=== PATIENT | male | born 1955 | race Caucasian/White ===

== ENCOUNTER → 2018-09-25 | Emergency (ER) | payer MEDICAID ==
[~2018-09-25] VITALS: Ht 170.2 cm; Wt 100.0 kg
[~2018-09-25] MED LIST: IBUP-1542 PO; KETOROLAC 30 MG INJ IM STA
[2018-09-25 14:05] VITALS: BP 141/77; PULSE 74; RESP 20; Ht 170.2 cm; Wt 100.0 kg
--- NOTE | 2018-09-26 00:25 | ERD ---
ER Documentation Chief Complaint Chief Complaint c/o right ankle swelling with pain x1 day. Denies injury HPI 63-year-old man complains of pain and mild swelling to the right lateral foot x1 day. He denies any direct trauma or inversion injury to the foot, no redness, no fevers or chills, no ankle pain or swelling. Pain precipitated by ambulating. ROS All systems reviewed and are negative except as per history of present illness. Medications Home Meds Active Scripts Ibuprofen* (Motrin*) 600 Mg Tab, 600 MG PO Q8 PRN for PAIN AND/OR INFLAMMATION, #30 TAB Prov:CARO ESTEBAN MD 09/25/18 Allergies Allergies: Coded Allergies: No Known Allergy (Unverified , 09/25/18) PMhx/Soc Obesity Medical and Surgical Hx: pt denies Medical Hx, pt denies Surgical Hx Hx Alcohol Use: No Hx Substance Use: No Hx Tobacco Use: No Smoking Status: Never smoker FmHx Family History: No diabetes Physical Exam Vitals Vital Signs Date Temp Pulse Resp B/P (MAP) Pulse Ox O2 O2 Flow FiO2 Time Delivery Rate 09/25/18 97.4 74 20 141/77 98 14:05 (98) Physical Exam Const: No acute distress, afebrile Resp: Clear to auscultation bilaterally Cardio: Regular rate and rhythm, no murmurs Abd: Soft, non tender, non distended. Normal bowel sounds Skin: No petechiae or rashes. Patient has no ulcers, erythema, induration, or lacerations. Back: No midline or flank tenderness Ext: No cyanosis, 1+ pitting edema lower extremities bilateral Neur: Awake and alert x3, no focal deficits or facial asymmetry, pupils equal round reactive to light Results 24 hrs Current Medications Medications Dose Sig/Yaquelin Start Time Status Last (Trade) Ordered Route PRN Stop Time Admin Dose Reason Admin Ketorolac 30 mg ONCE STAT 09/25/18 DC 09/25/18 Tromethamine IM 16:19 16:25 (Toradol) 09/25/18 16:22 Procedures/MDM Patient has mild tissue edema to the right lateral foot near the fifth metatarsal although no ecchymosis contusions or hematomas. No bony deformity, no skin erythema or induration. I administered Toradol 30 mg IM x1. X-ray right foot 3V Interpreted by me: Bones: No fracture Joints: No dislocation Foreign body: None Patient has no fracture, dislocation, signs of gout, cellulitis, or foreign bodies. He is able to ambulate before comfort and supportive measures I splinted the right foot with all cotton elastic bandage wrapped circumferential ly Patient will be discharged to follow-up with PMD. Departure Diagnosis: Primary Impression: Right foot sprain Encounter type: initial encounter Qualified Codes: S93.601A - Unspecified sprain of right foot, initial encounter Additional Impression: Contusion of soft tissue Condition: Good Patient Instructions: Contusion, Foot, Sprain Foot CARO ESTEBAN MD Sep 26, 2018 00:25
== END | disposition home or self-care (01) ==
LOC: FTE 13:34
DX: S93.601A Unspecified sprain of right foot, initial encounter (principal); X58.XXXA Exposure to other specified factors, initial encounter; Y92.9 Unspecified place or not applicable
CPT/HCPCS: 73630; 96372; J1885; Z7502

== ENCOUNTER 2019-01-02 10:52 | Emergency (ER) | payer SELFPAY ==
[~2019-01-02] VITALS: Ht 162.6 cm; Wt 80.0 kg
[~2019-01-02 10:52] MED LIST changes: +IBUP-1561 PO; -KETOROLAC 30 MG INJ IM STA
[2019-01-02 10:56] VITALS: BP 165/88; PULSE 72; RESP 18; Ht 162.6 cm; Wt 80.0 kg
[2019-01-02] MEDS ORDERED: ASPIRIN (EC) 81 MG TAB PO ONE (12:00)
--- NOTE | 2019-01-02 12:09 | ERD ---
ER Documentation Chief Complaint Chief Complaint left shoulder pain x 10 days HPI Patient is a 63 years old male with past medical history of diabetes and hyperlipidemia presenting to the clinic for left shoulder pain X 10 days. Sara rivers reports pain starts on the left shoulder region that radiates to anterior mid chest to left-sided chest stent radiates to left mid back. Patient is also complaining of left arm weakness and paresthesia. Patient denies any trauma or injury. Patient denies fever, chills, night sweats, rigors, shortness of breath, difficulty breathing. ROS All systems reviewed and are negative except as per history of present illness. Medications Home Meds Active Scripts Ibuprofen* (Motrin*) 400 Mg Tab, 400 MG PO Q8, #30 TAB Prov:ABDULLAHI DAWKINS PA-C 01/02/19 Ibuprofen* (Motrin*) 600 Mg Tab, 600 MG PO Q8 PRN for PAIN AND/OR INFLAMMATION, #30 TAB Prov:CARO ESTEBAN MD 09/25/18 Allergies Allergies: Coded Allergies: No Known Allergy (Unverified , 09/25/18) PMhx/Soc History of Surgery: No Anesthesia Reaction: No Hx Neurological Disorder: No Hx Respiratory Disorders: No Hx Cardiac Disorders: No Hx Psychiatric Problems: No Hx Miscellaneous Medical Probl: No Hx Alcohol Use: No Hx Substance Use: No Hx Tobacco Use: No FmHx Family History: No diabetes, No coronary disease, No other Physical Exam Vitals Vital Signs Date Temp Pulse Resp B/P (MAP) Pulse Ox O2 O2 Flow FiO2 Time Delivery Rate 01/02/19 98.1 72 18 165/88 99 10:56 (113) Physical Exam Const: No acute distress. Patient sitting comfortably on exam chair reading his newspaper. Head: Atraumatic Eyes: Normal Conjunctiva. PERRLA. No nystagmus. Neck: Full range of motion. No meningismus. No tenderness. Resp: Clear to auscultation bilaterally Cardio: Regular rate and rhythm, no murmurs Abd: Soft, non tender, non distended. Normal bowel sounds Ext: No cyanosis, or edema. 5/5 right upper extremity, 4/5 left upper extremity. Left shoulder tenderness. Difficulty with pronation and left arm elevation. Neur: Awake and alert. CNII-XII intact. Psych: Normal Mood and Affect Result Diagram: 01/02/19 1158 01/02/19 1158 Results 24 hrs Laboratory Tests Test 01/02/19 11:58 White Blood Count 6.1 10^3/ul Red Blood Count 4.69 10^6/ul Hemoglobin 13.9 g/dl Hematocrit 41.2 % Mean Corpuscular Volume 87.8 fl Mean Corpuscular Hemoglobin 29.6 pg Mean Corpuscular Hemoglobin Concent 33.7 g/dl Red Cell Distribution Width 13.2 % Platelet Count 72 10^3/UL Mean Platelet Volume 12.0 fl Immature Granulocytes % 0.300 % Neutrophils % 59.4 % Lymphocytes % 28.4 % Monocytes % 9.3 % Eosinophils % 2.1 % Basophils % 0.5 % Nucleated Red Blood Cells % 0.0 /100WBC Immature Granulocytes # 0.020 10^3/ul Neutrophils # 3.6 10^3/ul Lymphocytes # 1.7 10^3/ul Monocytes # 0.6 10^3/ul Eosinophils # 0.1 10^3/ul Basophils # 0.0 10^3/ul Nucleated Red Blood Cells # 0.0 10^3/ul Sodium Level 138 mmol/L Potassium Level 4.0 mmol/L Chloride Level 102 mmol/L Carbon Dioxide Level 28 mmol/L Anion Gap 8 Blood Urea Nitrogen 11 mg/dl Creatinine 0.80 mg/dl Est Glomerular Filtrat Rate mL/min > 60 mL/min Glucose Level 267 mg/dl Calcium Level 8.9 mg/dl Total Bilirubin 1.0 mg/dl Direct Bilirubin 0.00 mg/dl Indirect Bilirubin 1.0 mg/dl Aspartate Amino Transf (AST/SGOT) 83 IU/L Alanine Aminotransferase (ALT/SGPT) 69 IU/L Alkaline Phosphatase 169 IU/L Troponin I < 0.012 ng/ml Total Protein 7.6 g/dl Albumin 3.8 g/dl Globulin 3.80 g/dl Albumin/Globulin Ratio 1.00 Current Medications Medications Dose Sig/Yaquelin Start Time Status Last (Trade) Ordered Route PRN Stop Time Admin Dose Reason Admin Aspirin 81 mg ONCE ONCE 01/02/19 DC 01/02/19 (Halfprin) PO 12:00 01/02/19 12:15 12:01 Procedures/MDM Patient seen and evaluated for left shoulder pain, chest pain, left arm weakne ss. Patient's left shoulder pain is reproducible on exam. EKG: Rate/Rhythm: Normal Sinus Rhythm QRS, ST, T-waves: No changes consistent w/ acute ischemia Impression: No evidence of ischemia or arrhythmia Troponin, CBC, CMP revealed low platelet count of 70K otherwise unremarkable. Patient's thoracic symptoms have stabilized while in the department and are stable for outpatient follow up. Exam and work up not consistent w/ ischemia, arrhythmia, PE or dissection. Left shoulder x-ray revealed No acute fracture or dislocation. Patient is most likely experiencing musculoskeletal symptoms started with left shoulder pain. low suspicion for aortic dissection. Consultation with Dr. Arvizu agreed to management plan. Departure Diagnosis: Primary Impression: Shoulder pain Chronicity: acute Laterality: left Qualified Codes: M25.512 - Pain in left shoulder Condition: Stable Patient Instructions: Shoulder Pain (Uncertain Cause) Referrals: [facility] Additional Instructions: Paciente aconseja volver a Departamento de urgencias inmediatamente para sntomas nuevos o que empeoran . Paciente aconseja posteriores con el PCP en 2-3 torres . Paciente verbaliza la comprehensin y est de acuerdo con el tratamiento y el curso de accin. Si el paciente no tiene ninguna de atencin primaria pueden seguir con [facility] [address] [place] [address] o [facility] + [address] [address] ABDULLAHI DAWKINS PA-C Jan 02, 2019 12:09
== END 2019-01-02 14:25 | disposition home or self-care (01) ==
LOC: FTE 10:52
DX: M25.512 Pain in left shoulder (principal); E11.9 Type 2 diabetes mellitus without complications; R53.1 Weakness
CPT/HCPCS: 73030; 80053; 84484; 85025; 93005